=== PATIENT | male | born 2000 | race Caucasian/White ===

== ENCOUNTER 2024-03-21 01:22 | Emergency (ER) | payer SELFPAY ==
[~2024-03-21] VITALS: Ht 177.8 cm; Wt 79.0 kg
[2024-03-21 01:31] VITALS: O2SAT 98
[2024-03-21 01:40] VITALS: BP 130/69; PULSE 125; RESP 20
[2024-03-21 02:06] LABS: BASOPHILS % 0.5 % (0.0-2.0); EOSINOPHILS % 0.1 % (0.0-5.0); HEMATOCRIT. 43.4 % (42.0-52.0); HEMOGLOBIN. 14.6 g/dL (14.0-18.0); LYMPHOCYTES % 17.9 % (20.0-50.0); MEAN CORPUSCULAR HEMOGLOBIN 28.9 pg (28.0-32.0); MEAN CORPUSCULAR HGB CONC 33.5 g/dL (31.0-37.0); MEAN CORPUSCULAR VOLUME 86.2 fL (80.0-94.0); MEAN PLATELET VOLUME 8.2 fl (7.4-10.4); MONOCYTES % 4.7 % (2.0-8.0); NEUTROPHILS % 76.8 % (40.0-76.0); PLATELET 348 x1000/uL (130-400); RED BLOOD CELL COUNT 5.04 mill/uL (4.7-6.1); RED CELL DISTRIBUTION WIDTH 17.4 % (11.6-14.6); WHITE BLOOD COUNT 9.3 x1000/uL (4.5-11.0)
[2024-03-21 02:18] LABS: CHLORIDE 107 mEq/L (98-107); POTASSIUM 3.9 mEq/L (3.5-5.1); SODIUM 142 mEq/L (136-145)
[2024-03-21 02:19] LABS: CARBON DIOXIDE 26 mEq/L (21-32)
[2024-03-21 02:24] LABS: GLUCOSE 121 mg/dL (70-105)
[2024-03-21 02:26] LABS: ACETAMINOPHEN < 2 ug/mL (10-30)
[2024-03-21 02:34] LABS: ETHANOL BLOOD 377 mg/dL (<10)
[2024-03-21] MEDS: LORAZEPAM 2MG/ML INJ IM ONE (02:35)
[2024-03-21 02:39] LABS: UREA NITROGEN BLOOD < 5 mg/dL (9-23)
== END 2024-03-21 03:33 | disposition home or self-care (01) ==
LOC: ER 01:30
DX: F10.129 Alcohol abuse with intoxication, unspecified (principal); F19.90 Other psychoactive substance use, unspecified, uncomplicated; Y90.8 Blood alcohol level of 240 mg/100 ml or more
CPT/HCPCS: 80048; 80307; 80329; 80320; 85025; 36415; 96372; 99283; J2060; G0480

== ENCOUNTER 2024-05-13 14:51 | Emergency (ER) | payer MEDICAID ==
[~2024-05-13] VITALS: Ht 180.3 cm; Wt 82.0 kg
[2024-05-13 14:54] VITALS: BP 141/77; RESP 18; TEMP 98.5; O2SAT 98
[2024-05-13 14:55] VITALS: PULSE 88; O2SAT 100
== END 2024-05-13 15:40 | disposition left against medical advice (07) ==
LOC: ER 14:51
DX: M54.50 Low back pain, unspecified (principal); Z53.21 Procedure and treatment not carried out due to patient leaving prior to being seen by health care provider

== ENCOUNTER 2024-08-04 02:52 | Emergency (ER) | payer MEDICAID, OTHER ==
[~2024-08-04] VITALS: Ht 177.8 cm; Wt 82.0 kg
[2024-08-04] MEDS ORDERED: IBUP-2029 MT (02:55)
[2024-08-04 03:00] VITALS: BP 137/84; PULSE 88; RESP 16; TEMP 98.7; O2SAT 100
== END 2024-08-04 03:06 ==
LOC: ER 02:56
DX: S02.5XXA Fracture of tooth (traumatic), initial encounter for closed fracture (principal); S00.511A Abrasion of lip, initial encounter; Z00.00 Encounter for general adult medical examination without abnormal findings; Z65.3 Problems related to other legal circumstances; X58.XXXA Exposure to other specified factors, initial encounter; Y93.89 Activity, other specified; Y92.89 Other specified places as the place of occurrence of the external cause; Y99.8 Other external cause status
CPT/HCPCS: 99283

== ENCOUNTER 2024-11-23 21:19 | Emergency (ER) | payer OTHER ==
[~2024-11-23] VITALS: Ht 172.7 cm; Wt 69.0 kg
[~2024-11-23 21:19] MED LIST: IBUP-2029 MT
[2024-11-23 21:24] VITALS: TEMP 36.8
[2024-11-23] MEDS: ONDANSETRON 4MG ODT PO ONE (22:00)
[2024-11-23] MEDS: HYDROCODONE/ACETAMINOPHEN 5/325MG TABLET PO ONE (22:02)
[2024-11-23] MEDS: PROPOFOL 200MG/20ML VIAL IV ONE (22:41)
[2024-11-23] MEDS: ONDANSETRON HCL 4MG/2ML INJ IV ONE (22:42)
[2024-11-23] MEDS: MORPHINE SULFATE 4 MG/ML INJ (FOR IV/IM USE) IV ONE (22:42)
[2024-11-23] MEDS: KETAMINE HCL 50 MG/ML 10ML IV ONE (22:42)
[2024-11-23] MEDS ORDERED: IBUP-2029 MT (23:02)
[2024-11-23 23:35] VITALS: O2SAT 99
[2024-11-23 23:38] VITALS: BP 121/57; PULSE 108; RESP 18; O2SAT 100
== END 2024-11-23 23:48 | disposition home or self-care (01) ==
LOC: ER 21:19
DX: S53.11 Anterior subluxation and dislocation of ulnohumeral joint (principal); Z79.899 Other long term (current) drug therapy; X58.XXXA Exposure to other specified factors, initial encounter; Y93.89 Activity, other specified; Y92.89 Other specified places as the place of occurrence of the external cause; Y99.8 Other external cause status
CPT/HCPCS: 99285; 24600; 96374; 96375; 73070; 99152; Q0162; J3490; J2405; J2704; J2270

== ENCOUNTER 2024-11-24 04:57 | Emergency (ER) | payer OTHER ==
[~2024-11-24] VITALS: Ht 180.3 cm; Wt 79.0 kg
[2024-11-24 04:58] VITALS: BP 132/78; PULSE 72; RESP 18; TEMP 36.7; O2SAT 100
== END 2024-11-24 06:24 | disposition home or self-care (01) ==
LOC: ER 04:57
DX: S00.83XA Contusion of other part of head, initial encounter (principal); S53.105A Unspecified dislocation of left ulnohumeral joint, initial encounter; Z02.89 Encounter for other administrative examinations; Z79.899 Other long term (current) drug therapy; X58.XXXA Exposure to other specified factors, initial encounter; Y93.89 Activity, other specified; Y92.89 Other specified places as the place of occurrence of the external cause; Y99.8 Other external cause status
CPT/HCPCS: 99284; 29105; 70450; A6449; A4565